=== PATIENT | male | born 1940 | race African-American/Black ===

== ENCOUNTER 2017-04-09 04:23 | Inpatient (IN) ==
[2017-04-09] MEDS ORDERED: ONDANSETRON 4 MG/2 ML VIAL IV STA (04:40)
[2017-04-09] MEDS ORDERED: SODIUM CHLORIDE 0.9% 500 ML IV STA (04:40)
[2017-04-09] MEDS ORDERED: MORPHINE 2 MG/1 ML SYRINGE IV STA (04:40)
--- NOTE | 2017-04-09 04:46 | Emergency Department Note ---
Mason Stephen Hilary, am scribing for, and in the presence of, Jona Farr MD 04:43. Yordan Stephen Robert M, MD, personally performed the services described in this documentation, ascribed by Yara Cuevas in my presence, and it is both accurate and complete 446 . Arrival - Arrival Chief Complaint: Shortness of Breath Stated Complaint: Shortness of breath with n/v/d ED Nursing Triage Note: Patient complains of shortness of breath, chest pain and nausea, vomiting and diarrhea that began this afternoon. Patient has a history of CHF, HTN, pacemaker placement. Dr. Shelley in [place] is patient's administrative court justice. Mode of Arrival: Stretcher Limitations: No Limitations Source: Patient, RN Notes Reviewed Time Seen by Provider: 04/09/17 04:35 - History of Present Illness HPI Narrative: Pt is a 76 y/o male brought into the ED via EMS with c/o SOB and vomiting which onset yesterday. Pt confirms vomiting, nausea, SOB and diarrhea but denies chest pain. No other complaints or problems stated in the ED. Patient has a PMHx of CHF, HTN, and pacemaker placement. Dr. Shelley in [place] is patient's administrative court justice. Onset (ago): hour(s) Consistency: constant Severity: mild Severity scale (1-10): 1 Allergies/Adverse Reactions: Allergies Allergy/AdvReac Type Severity Reaction Status Date / Time No Known Allergies Allergy Verified 10/31/16 18:56 Home Medications: Home Medications Medication Instructions Recorded Confirmed Type Aspirin [Ecotrin] 81 mg PO DAILY 04/30/15 04/09/17 History Carvedilol 25 mg PO BID 04/30/15 04/09/17 History Furosemide 40 mg PO DAILY 04/30/15 04/09/17 History Lisinopril 40 mg PO BID 04/30/15 04/09/17 History Tamsulosin [Flomax] 0.4 mg PO DAILY 04/30/15 04/09/17 History amLODIPine [Norvasc] 10 mg PO DAILY 04/30/15 04/09/17 History Simvastatin 20 mg PO DAILY 10/31/16 04/09/17 History Review of System - Review of System 12 point system: reviewed and no additional remarkable complaints except as stated - Review of System Constitutional: Absent: fever Respiratory: Present: respiratory distress (SOB) Cardiovascular: Absent: chest pain Gastrointestinal: Present: nausea, vomiting, diarrhea Medical,Surgical,& Family Hx - Medical History Cardio: History of: CHF, Hypertension, Pacemaker, Cardiovascular Problems ( PACEMAKER DR JOSEPHINE BURGOS) Neurology: History of: Seizures HEENT: History of: Ear Problem, Eye Problem (CATARACTS), Dental Problems ( DENTURES) Endocrine: History of: Dyslipidemia Genitourinary: History of: Prostate Problems (BPH) - Surgical History Cardiac Surgeries: Sugical HX of: Cardiac Catheterization, Cardiac Surgery HEENT Surgeries: Surgical HX of: Eye Surgery (cataract lt 05-02-15/For Rt 05-21-15 ) Reproductive Surgeries: Surgical HX of;: Prostate Surgery (TURP) - Social History Smoking Status: Never smoker Frequency of Alcohol Use: None Type of Drug Use: None Exam Vital Signs: Vital Signs Temperature 97.6 F 04/09/17 04:24 Pulse Rate 75 04/09/17 04:24 Respiratory Rate 20 04/09/17 04:24 Blood Pressure 132/104 04/09/17 04:24 O2 Sat by Pulse Oximetry 97 04/09/17 04:24 - General General appearance: alert, in no apparent distress - Head Head exam: Present: atraumatic, normocephalic - Eye Eye exam: Present: normal appearance, PERRL, EOMI - ENT ENT exam: Present: mucous membranes moist, TM's normal bilaterally. Absent: mucous membranes dry - Neck Neck exam: Present: full ROM, trachea midline. Absent: tenderness - Chest Chest inspection: Present: symmetric chest wall rise. Absent: tenderness - Respiratory Respiratory exam: Present: normal lung sounds bilaterally. Absent: respiratory distress - Cardiovascular Cardiovascular exam: Present: regular rate, normal rhythm, normal heart sounds. Absent: murmur, rubs, gallop - Abdominal Exam Abdominal exam: Present: soft, distention, normal bowel sounds. Absent: tenderness - Extremities Exam Extremities exam: Present: full ROM. Absent: tenderness - Back Exam Back exam: Present: full ROM. Absent: tenderness - Neurological Exam Neurological exam: Present: alert, oriented X3, CN II-XII intact. Absent: motor sensory deficit - Psychiatric Psychiatric exam: Present: normal affect, normal mood - Skin Skin exam: Present: warm, dry, intact, normal color. Absent: rash Course - Consultations Consultation #1: Girma Saha will evaluate and admit the patient. Time: 05:33 Results - Labs CBC & BMP: 04/09/17 04:52 04/09/17 04:52 Lab Results: I have reviewed the patients labs - Diagnostic Findings Procedure: Abdominal x-ray: image reviewed by me (Nonspecific bowel gas pattern suggests ileus or possibly focal small bowel obstruction.), Chest x-ray: image reviewed by me (Stable chest.) Disposition Clinical Impression: Ileus, Abdominal pain, Intractable hiccups, Nausea & vomiting, HTN ( hypertension), Pacemaker Case discussed with: patient, patient's family Disposition: Still a Patient Condition: Stable Time of Disposition: 05:35
[2017-04-09 04:59] LABS: Hematocrit 37.6 VOL% (42.0-52.0); Hemoglobin 12.7 GM/DL (14.0-18.0); Immature Granulocytes % 0.3 %; Immature Granulocytes Absolute 0.03 #; Lymphocytes # 1.1 10*3/uL (1.4-4.0); Lymphocytes % 12.3 % (21.2-54.2); Mean Corpuscular HGB Conc 33.8 GM/DL (32-36); Mean Corpuscular Hemoglobin 28 PG (27-34); Mean Corpuscular Volume 83.4 FL (87-102); Mean Platelet Volume 11.2 FL (9.6-12.0); Monocytes # 0.5 10*3/uL (0.11-0.8); Monocytes % 6.1 % (1.7-12.7); Neutrophils # 7.2 10*3/uL (1.4-7.4); Neutrophils % 81.3 % (38.7-73.9); Platelet Count 208 T/CUMM (130-400); Red Blood Count 4.51 MC/CUMM (3.8-5.5); Red Cell Distribution Width 14.2 % (9.3-17.3); White Blood Count 8.8 T/CUMM (4-12)
[2017-04-09 05:19] LABS: INR 1.1; PT Patient Result 11.5 SECS
[2017-04-09] MEDS ORDERED: ONDANSETRON 4 MG/2 ML VIAL ONE (05:23)
[2017-04-09] MEDS ORDERED: MORPHINE 2 MG/1 ML SYRINGE ONE (05:24)
[2017-04-09 05:29] LABS: Alanine Aminotransferase 16 U/L (16-61); Alkaline Phosphatase 62 U/L (45-117); Aspartate Amino Transferase 12 U/L (0-37); Blood Urea Nitrogen 26 MG/DL (7-18); Calcium 9.9 MG/DL (8.5-10.1); Glucose 191 MG/DL (74-106); Magnesium 1.8 MG/DL (1.8-2.4); Osmolality,Calculated 290.3 MOS/KG (273-304); Potassium 3.6 MMOL/L (3.5-5.1); Sodium 141 MMOL/L (136-145); Total Protein 7.6 G/DL (6.4-8.3); Troponin I Only < 0.015 NG/ML (0.00-0.045)
--- NOTE | 2017-04-09 05:55 | Hospitalist History & Physical ---
Assessment and Plan (1) Abdominal pain Status: Acute Current Visit: Yes (2) Ileus Status: Acute Current Visit: Yes (3) Nausea & vomiting Status: Acute Current Visit: Yes (4) HTN (hypertension) Status: Chronic Current Visit: Yes (5) Pacemaker Status: Chronic Assessment and plan: We will admit patient our service. We will can provide gentle hydration. We need to watch him closely. Repeat his KUB and see if this ileus resolves. If he has any more diarrhea will check stool studies. Reevaluate patient in the morning just plans appropriate Current Visit: Yes History of Present Illness Chief complaint: Abdominal pain chest pain nausea vomiting diarrhea History of present illness: Mr. Eckert is a 76 year old male past medical history significant for hypertension, pacemaker, congestive heart failure and prostate cancer sister who is in his normal state of health until approximately 7 PM yesterday. Patient started having gastroenteritis symptoms which included nausea vomiting diarrhea. Said he could not keep anything down. He reports abdominal cramps occurred also. Came up to our hospital for further evaluation. Patient had a workup done at our hospital in the patient appears to have a ileus. I was consulted for admission Home Medications Medication Instructions Recorded Confirmed Type Aspirin [Ecotrin] 81 mg PO DAILY 04/30/15 04/09/17 History Carvedilol 25 mg PO BID 04/30/15 04/09/17 History Furosemide 40 mg PO DAILY 04/30/15 04/09/17 History Lisinopril 40 mg PO BID 04/30/15 04/09/17 History Tamsulosin [Flomax] 0.4 mg PO DAILY 04/30/15 04/09/17 History amLODIPine [Norvasc] 10 mg PO DAILY 04/30/15 04/09/17 History Simvastatin 20 mg PO DAILY 10/31/16 04/09/17 History Allergies Allergy/AdvReac Type Severity Reaction Status Date / Time No Known Allergies Allergy Verified 10/31/16 18:56 Medical,Surgical,& Family Hx - Medical History Cardio: History of: CHF, Hypertension, Pacemaker, Cardiovascular Problems ( PACEMAKER DR JOSEPHINE BURGOS) Neurology: History of: Seizures HEENT: History of: Ear Problem, Eye Problem (CATARACTS), Dental Problems ( DENTURES) Endocrine: History of: Dyslipidemia Genitourinary: History of: Prostate Problems (BPH) - Surgical History Cardiac Surgeries: Sugical HX of: Cardiac Catheterization, Cardiac Surgery HEENT Surgeries: Surgical HX of: Eye Surgery (cataract lt 05-02-15/For Rt 05-21-15 ) Reproductive Surgeries: Surgical HX of;: Prostate Surgery (TURP) - Family History Family History: Reports;: Family Cancer - Social History Smoking Status: Never smoker Frequency of Alcohol Use: None Type of Drug Use: None 12 point system: reviewed and no additional remarkable complaints except as stated Exam - Constitutional Vitals: Period Temp Pulse Resp BP Sys/Lin Pulse Ox Last 24 Hr 97.6 F 75 20 132/104 97 General appearance: normal weight - Head Head exam: Present: normal inspection - Eye Eye exam: Present: EOMI Pupils: Present: EMIGDIO - ENT ENT exam: Present: normal exam - Neck Neck exam: Present: normal inspection - Respiratory Respiratory exam: Present: clear to auscultation bilaterally - Cardiovascular Cardiovascular exam: Present: regular rate and rhythm - GI/Abdominal GI/Abdominal exam: Present: distended, hypoactive bowel sounds, tenderness. Absent: rebound - Extremities Exam Extremities exam: Present: normal inspection - Back Exam Back exam: Present: normal inspection - Neurological Exam Neurological exam: Present: alert - Psychiatric Psychiatric exam: Present: normal affect Results - Labs CBC & BMP: 04/09/17 04:52 04/09/17 04:52
[2017-04-09] MEDS ORDERED: ONDANSETRON 4 MG/2 ML VIAL IV PRN (05:57)
--- NOTE | 2017-04-09 07:47 | XRay Report ---
History is short of breath Comparison 10/31/2016 The heart is enlarged with pacemaker present There are mild hypoaeration changes in the lung bases. There are slight increasing interstitial opacities in the lung bases without consolidation or pneumothorax seen Impression: 1. Suspected minimal interstitial edema PROCEDURE INTERPRETED AT [facility] DEPARTMENT OF RADIOLOGY Final Report Signed by: Dr. Karen Jose
--- NOTE | 2017-04-09 07:48 | XRay Report ---
History is abdominal pain Air-filled loops of small bowel in the mid abdomen measure up to 3.8 cm. Mild amount of air scattered in the remainder of the large and small bowel. No organomegaly is seen Impression: Localized ileus versus partial or early obstruction. Follow-up films recommended PROCEDURE INTERPRETED AT [facility] DEPARTMENT OF RADIOLOGY Final Report Signed by: Dr. Karen Jose
--- NOTE | 2017-04-09 07:50 | EKG Report ---
Stationary ECG Study [facility] Test Date: 04/09/2017 4:31:02 AM Pat Name: DILMA DEWEY Department: Room: 217 Gender: M Director Supply: : 1940 Requested by: Jona Farr Order Number: [id number] Melisa MD: SOCORRO WOODY Intervals [place] Rate: 91 P: 999 DE: 0 QRS: 10 QRSD: 123 T: 61 QT: 413 QTc: 462 Interpretive Statements NORMAL SINUS RHYTHM WITH VENTRICULAR PREMATURE COMPLEXES Electronically Signed On 04-10-17 15:59:40 CDT by SOCORRO WOODY [email or web address]
[2017-04-09] MEDS: KETOROLAC 15 MG/1 ML VIAL IV PRN ×3 (07:54→22:33)
[2017-04-09] MEDS: SODIUM CHLORIDE 0.9% 1,000 ML IV SCH ×2 (07:55→21:26)
[2017-04-09] MEDS: CARVEDILOL 25 MG TABLET PO SCH ×2 (07:56→16:16)
[2017-04-09] MEDS: PANTOPRAZOLE 40 MG VIAL IV SCH ×2 (09:03→21:26)
[2017-04-09] MEDS: ENOXAPARIN 40 MG/0.4 ML SYRINGE SUBCUT SCH (09:03)
[2017-04-09] MEDS: FUROSEMIDE 40 MG TABLET PO SCH (09:04)
[2017-04-09] MEDS: TAMSULOSIN 0.4 MG CAPSULE PO SCH (09:04)
[2017-04-09] MEDS: LISINOPRIL 20 MG TABLET PO SCH ×2 (09:04→21:26)
[2017-04-09] MEDS: amLODIPine 10 MG TABLET PO SCH (09:04)
[2017-04-09] MEDS: ASPIRIN EC 81 MG TABLET PO SCH (09:04)
--- NOTE | 2017-04-09 13:59 | Hospitalist Progress Note ---
Assessment and Plan (1) Ileus Status: Acute Assessment and plan: Patient will have an NG tube placed this morning. Repeat a KUB in the morning. Also repeat his CBC BMP and magnesium tomorrow. Current Visit: Yes (2) Abdominal pain Status: Acute Assessment and plan: As above. I noticed that there was no lipase drawn overnight. That will be run on the serum drawn overnight. Current Visit: Yes (3) Nausea & vomiting Status: Acute Assessment and plan: This is improved. We will continue to observe. Continue IV fluids. Will have an NG tube for a day. Current Visit: Yes Hospitalist: Subjective Interval history: This is a first encounter with this patient. Patient has been seen interviewed and examined and chart has been reviewed; 76-year-old gentleman admitted overnight with nausea diarrhea and vomiting and abdominal pain. Assessment patient was thought of possibly partial small bowel obstruction. KUB. I noticed that she does not have an NG tube at this point. He is a febrile but count is normal and no metabolic acidosis on chemistry. No significant discomfort with abdominal pain. Exam - Constitutional Vitals: Period Temp Pulse Resp BP Sys/Lin Pulse Ox Last 24 Hr 97 F-97.6 F 64-101 16-20 111-136/66-104 95-100 General appearance: mild distress, over weight - Head Head exam: Present: normocephalic, atraumatic - Eye Eye exam: Present: EOMI, other (Anicteric sclera) Pupils: Present: EMIGDIO - ENT ENT exam: Present: normal exam - Neck Neck exam: Present: normal inspection - Respiratory Respiratory exam: Present: clear to auscultation bilaterally - Cardiovascular Cardiovascular exam: Present: regular rate and rhythm - GI/Abdominal GI/Abdominal exam: Present: other (Diffuse abdominal discomfort mostly around the periumbilical area. Evidence of bowel sounds patient has rebound tenderness ) - Extremities Exam Extremities exam: Present: full ROM - Neurological Exam Neurological exam: Present: alert, oriented X3, CN II-XII intact - Psychiatric Psychiatric exam: Present: normal affect, normal mood - Skin Skin exam: Present: normal color, warm, dry Results - Labs CBC & BMP: 04/09/17 04:52 04/09/17 04:52 Lab Results: I have reviewed the past 24 hour labs (Noted normal white count mild anemia. Creatinine 1. 4 repeat a BMP and CBC normal)
[2017-04-09] MEDS: SIMVASTATIN 20 MG TABLET PO SCH (21:12)
[2017-04-10 04:49] LABS: Basophils % 0.2 % (0.0-0.8); Hematocrit 34.2 VOL% (42.0-52.0); Hemoglobin 11.3 GM/DL (14.0-18.0); Immature Granulocytes % 0.2 %; Immature Granulocytes Absolute 0.01 #; Lymphocytes # 1.1 10*3/uL (1.4-4.0); Lymphocytes % 19.2 % (21.2-54.2); Mean Corpuscular Hemoglobin 28 PG (27-34); Mean Corpuscular Volume 85.1 FL (87-102); Mean Platelet Volume 11.1 FL (9.6-12.0); Monocytes # 0.8 10*3/uL (0.11-0.8); Monocytes % 14.7 % (1.7-12.7); Neutrophils # 3.8 10*3/uL (1.4-7.4); Neutrophils % 65.7 % (38.7-73.9); Platelet Count 196 T/CUMM (130-400); Red Blood Count 4.02 MC/CUMM (3.8-5.5); Red Cell Distribution Width 14.5 % (9.3-17.3); White Blood Count 5.7 T/CUMM (4-12)
[2017-04-10] MEDS: KETOROLAC 15 MG/1 ML VIAL IV PRN ×3 (05:23→16:28)
[2017-04-10 05:29] LABS: Calcium 8.2 MG/DL (8.5-10.1); Magnesium 2.1 MG/DL (1.8-2.4); Osmolality,Calculated 300.7 MOS/KG (273-304); Potassium 3.5 MMOL/L (3.5-5.1)
[2017-04-10 07:06] LABS: Albumin 3.3 G/DL (3.4-5.0); Calcium 8.3 MG/DL (8.5-10.1); Osmolality,Calculated 300.7 MOS/KG (273-304); Potassium 3.5 MMOL/L (3.5-5.1); Total Protein 6.4 G/DL (6.4-8.3)
[2017-04-10] MEDS: ENOXAPARIN 40 MG/0.4 ML SYRINGE SUBCUT SCH (09:03)
[2017-04-10] MEDS: PANTOPRAZOLE 40 MG VIAL IV SCH ×2 (09:03→21:05)
[2017-04-10] MEDS: FUROSEMIDE 40 MG TABLET PO SCH (09:04)
[2017-04-10] MEDS: TAMSULOSIN 0.4 MG CAPSULE PO SCH (09:04)
[2017-04-10] MEDS: ASPIRIN EC 81 MG TABLET PO SCH (09:04)
[2017-04-10] MEDS: amLODIPine 10 MG TABLET PO SCH (09:04)
[2017-04-10] MEDS: CARVEDILOL 25 MG TABLET PO SCH ×2 (09:04→16:28)
[2017-04-10] MEDS: LISINOPRIL 20 MG TABLET PO SCH ×2 (09:04→21:05)
--- NOTE | 2017-04-10 09:07 | XRay Report ---
History: Abdominal pain Date: 04/10/2017 Study: KUB Comparison exam: 04/09/2017 A nasogastric tube is positioned with its tip overlying the fundus of the stomach. There is increased disproportionate small bowel dilatation compared to the previous study. Scattered stool and air are noted in the normal caliber colon. The osseous structures are unchanged. Impression: Worsening partial small bowel obstruction. The nasogastric tube tip overlies the proximal stomach level PROCEDURE INTERPRETED AT [facility] DEPARTMENT OF RADIOLOGY Final Report Signed by: Dr. Deanna Clayton
[2017-04-10] MEDS: SODIUM CHLORIDE 0.9% 1,000 ML IV SCH ×2 (10:46→23:38)
--- NOTE | 2017-04-10 12:43 | Hospitalist Progress Note ---
Assessment and Plan (1) Ileus Status: Acute Assessment and plan: Repeat KUB still shows prominence of small bowel loops. She will be considering surgery. NG tube suction with minimal return. Potassium level was normal. Current Visit: Yes (2) Abdominal pain Status: Acute Assessment and plan: Lipase drawn late yesterday was on 85. LFTs are within normal limits potassium of 3.5 and a normal magnesium at 2.1 Current Visit: Yes (3) Nausea & vomiting Status: Acute Assessment and plan: Patient states that this is resolved, not nauseous anymore Current Visit: Yes Hospitalist: Subjective Interval history: Patient has been seen interviewed and examined and chart has been reviewed complaining of some abdominal pain though he says he feels a little better than yesterday. Repeat KUB still shows some prominence of small bowel loops. Will obtain surgical consultation for bedside evaluation and recommendation today. White count remains normal at 5,7700 and is not acidotic Exam - Constitutional Vitals: Period Temp Pulse Resp BP Sys/Lin Pulse Ox Last 24 Hr 97.3 F-98.6 F 71-84 18-22 90-151/49-87 91-95 General appearance: no acute distress - Head Head exam: Present: normocephalic, atraumatic - Eye Eye exam: Present: EOMI, other Pupils: Present: EMIGDIO (Anicteric sclera) - Neck Neck exam: Present: other (Supple neck no thyromegaly no JVD) - Respiratory Respiratory exam: Present: clear to auscultation bilaterally - Cardiovascular Cardiovascular exam: Present: regular rate and rhythm - GI/Abdominal GI/Abdominal exam: Present: tenderness (Tenderness on palpation diffusely presence of bowel sounds) - Extremities Exam Extremities exam: Present: full ROM - Neurological Exam Neurological exam: Present: alert, oriented X3, CN II-XII intact - Psychiatric Psychiatric exam: Present: other (Subdued affect) - Skin Skin exam: Present: normal color, warm, dry Results - Labs CBC & BMP: 04/10/17 04:31 04/10/17 04:31 Lab Results: I have reviewed the past 24 hour labs
--- NOTE | 2017-04-10 12:45 | General Surgery Consult Note ---
History of Present Illness Chief complaint: Consult for small bowel obstruction History of present illness: Mr. Eckert is a 76 year old male who states he previously was in good health was out working on yesterday morning and felt pretty tired so he went into his house. He decided to drink some water and at that point began to notice some abdominal discomfort which continue to progress. He states it was mostly over on the right abdomen. He began to have multiple complaints including chest pain shortness of breath diarrhea and vomiting. His pain was achy and dull in nature. He was admitted and his initial x-ray suggested an ileus. Repeat x- ray showed worsening pattern of the small bowel. He had an NG tube placed and currently feels much better than when he presented. NG tube output today is much decreased. Not able to access the assessment and plan screens put it here: Impression ileus Plan: We will plan for CT scan of the abdomen and pelvis in the morning with oral contrast through the NG tube. Suspect this may be an ileus related to his other issues. He is currently appears to be doing well with no abdominal pain. We will continue to follow. Home Medications Medication Instructions Recorded Confirmed Type Aspirin [Ecotrin] 81 mg PO DAILY 04/30/15 04/09/17 History Carvedilol 25 mg PO BID 04/30/15 04/09/17 History Furosemide 40 mg PO DAILY 04/30/15 04/09/17 History Lisinopril 40 mg PO BID 04/30/15 04/09/17 History Tamsulosin [Flomax] 0.4 mg PO DAILY 04/30/15 04/09/17 History amLODIPine [Norvasc] 10 mg PO DAILY 04/30/15 04/09/17 History Simvastatin 20 mg PO DAILY@2100 10/31/16 04/09/17 History Allergies Allergy/AdvReac Type Severity Reaction Status Date / Time No Known Allergies Allergy Verified 10/31/16 18:56 Medical,Surgical,& Family Hx - Medical History Cardio: History of: CHF, Hypertension, Pacemaker, Cardiovascular Problems ( PACEMAKER DR JOSEPHINE BURGOS) Neurology: History of: Seizures HEENT: History of: Ear Problem, Eye Problem (CATARACTS), Dental Problems ( DENTURES) Endocrine: History of: Dyslipidemia Genitourinary: History of: Prostate Problems (BPH) Gastrointestinal: History of: GERD - Surgical History Surgical History: noncontributory Cardiac Surgeries: Sugical HX of: Cardiac Catheterization, Cardiac Surgery HEENT Surgeries: Surgical HX of: Eye Surgery (cataract lt 05-02-15/For Rt 05-21-15 ) Reproductive Surgeries: Surgical HX of;: Prostate Surgery (TURP) - Family History Family History: noncontributory Family History: Reports;: Family Cancer - Social History Smoking Status: Never smoker Frequency of Alcohol Use: None Type of Drug Use: None 12 point system: reviewed and no additional remarkable complaints except as stated Exam - Constitutional Vitals: Period Temp Pulse Resp BP Sys/Lin Pulse Ox Last 24 Hr 97.3 F-98.6 F 71-84 18-22 90-151/49-87 91-95 General appearance: no acute distress - Head Head exam: Present: normocephalic - ENT Mouth exam: Present: normal external inspection - Neck Neck exam: Present: normal inspection - Respiratory Respiratory exam: Present: clear to auscultation bilaterally - Cardiovascular Cardiovascular exam: Present: RRR - GI/Abdominal GI/Abdominal exam: Present: soft (Nontender, mildly distended but difficult to tell due to body habitus) - Extremities Exam Extremities exam: Present: normal inspection - Back Exam Back exam: Present: normal inspection - Neurological Exam Neurological exam: Present: alert, oriented X3 Speech: Present: normal - Skin Skin exam: Present: normal color Results - Labs CBC & BMP: 04/10/17 04:31 04/10/17 04:31 Lab Results: I have reviewed the past 24 hour labs
[2017-04-10] MEDS: SIMVASTATIN 20 MG TABLET PO SCH (21:05)
[2017-04-11] MEDS: PANTOPRAZOLE 40 MG VIAL IV SCH ×2 (08:30→20:49)
[2017-04-11] MEDS: FUROSEMIDE 40 MG TABLET PO SCH (08:30)
[2017-04-11] MEDS: CARVEDILOL 25 MG TABLET PO SCH ×2 (08:30→17:16)
[2017-04-11] MEDS: amLODIPine 10 MG TABLET PO SCH (08:30)
[2017-04-11] MEDS: TAMSULOSIN 0.4 MG CAPSULE PO SCH (08:30)
[2017-04-11] MEDS: ENOXAPARIN 40 MG/0.4 ML SYRINGE SUBCUT SCH (08:31)
[2017-04-11] MEDS: ASPIRIN EC 81 MG TABLET PO SCH (08:31)
[2017-04-11] MEDS: KETOROLAC 15 MG/1 ML VIAL IV PRN (08:31)
[2017-04-11] MEDS: LISINOPRIL 20 MG TABLET PO SCH ×2 (08:33→20:49)
--- NOTE | 2017-04-11 09:38 | CT Report ---
CT abdomen pelvis Indication: Small bowel obstruction Comparison: None available Technique: Axial CT imaging of the abdomen and pelvis is performed without intravenous contrast. Oral contrast was used. Findings: Cardiac and lung bases are within normal limits CT abdomen: The liver spleen pancreas and adrenal glands are normal in size and density. No evidence of focal lesion is demonstrated in these solid organs. Kidneys are normal in size with cystic area on the right kidney up to 4.5 cm in size. Hyperdense cystic areas seen on the left kidney that measures up to 1.4 cm in size. No evidence of hydronephrosis or nephrolithiasis is seen. Small bowel caliber is increased diffusely with delayed the passage of oral contrast. Large bowel caliber is increased with increased fluid and no wall thickening or adjacent inflammatory change is seen. No evidence of free fluid or free air is present. CT pelvis: Diverticula are seen in the descending and sigmoid colon without evidence of diverticulitis. Bladder appear within normal limits. The pelvic organs show no evidence of abnormality Impression: Increased small bowel caliber diffusely and increased fluid. Similar findings are present in the proximal colon without evidence of obstruction and suggests enterocolitis. This CT exam was performed using one or more the following dose reduction techniques: Automated exposure control, adjustment of the MA and/or KV according to patient size, or use of iterative reconstruction technique. PROCEDURE INTERPRETED AT [facility] [place] DEPARTMENT OF RADIOLOGY Final Report Signed by: Dr. Beau Lang
--- NOTE | 2017-04-11 10:09 | Hospitalist Progress Note ---
Assessment and Plan (1) Ileus Status: Acute Assessment and plan: Repeat KUB still shows prominence of small bowel loops. She will be considering surgery. NG tube suction with minimal return. Potassium level was normal. Current Visit: Yes (2) Abdominal pain Status: Acute Assessment and plan: Lipase drawn late yesterday was on 85. LFTs are within normal limits potassium of 3.5 and a normal magnesium at 2.1 Current Visit: Yes (3) Nausea & vomiting Status: Acute Assessment and plan: This is resolved Current Visit: Yes Hospitalist: Subjective Interval history: Patient has been seen interviewed and examined and chart has been reviewed. Surgical consultation is appreciated. Repeat CT scan has been done pending reporting. Patient does seem to have her remnant areas with prominent small bowel loops. Abdominal pain is less. Exam - Constitutional Vitals: Period Temp Pulse Resp BP Sys/Lin Pulse Ox Last 24 Hr 97.0 F-98.6 F 60-77 16-22 90-117/49-72 91-96 General appearance: over weight - Head Head exam: Present: normocephalic, atraumatic - Eye Eye exam: Present: EOMI Pupils: Present: EMIGDIO - ENT ENT exam: Present: normal oropharynx, other (Nasogastric tube seen and placed to slow [place]) - Respiratory Respiratory exam: Present: clear to auscultation bilaterally - Cardiovascular Cardiovascular exam: Present: regular rate and rhythm, other (With occasional ectopy. Monitor strips are showing occasional PVCs.) - GI/Abdominal GI/Abdominal exam: Present: normal bowel sounds, soft, other (Mild discomfort periumbilical on palpation) - Neurological Exam Neurological exam: Present: alert, oriented X3, CN II-XII intact - Psychiatric Psychiatric exam: Present: normal affect, normal mood - Skin Skin exam: Present: normal color, warm, dry Results - Labs CBC & BMP: 04/10/17 04:31 04/10/17 04:31 Lab Results: I have reviewed the past 24 hour labs (Morning labs be drawn tomorrow to include CMP magnesium and CBC)
[2017-04-11] MEDS ORDERED: LACTATED RINGERS 1,000 ML IV ONE (10:22)
--- NOTE | 2017-04-11 10:24 | General Surgery Progress Note ---
Assessment and Plan - Time spent with patient Time spent with patient: Less than 30 minutes (1) Enterocolitis Status: Acute Assessment and plan: 76-year-old -[place] male with history of hypertension, pacemaker, congestive heart failure, and prostate cancer admitted by the hospitalist service on 04/09/2017 with abdominal pain, nausea, vomiting, and diarrhea. NG tube was placed and his output was less than [address] scan shows no evidence of obstruction, suggesting enterocolitis. Patient feels much better today with no nausea and his abdomen is soft with no abdominal pain. He is still having diarrhea. Will DC NG tube and start on a clear liquid diet. Consult GI for enterocolitis. His creatinine has gone up to 1.6 so we will bolus him a liter of fluid, stopped Toradol and his Lasix. This is all been discussed with Dr. Cross who has seen and examined patient. Current Visit: Yes (2) Acute kidney injury Status: Acute Current Visit: Yes (3) Abdominal pain Status: Acute Current Visit: Yes (4) Nausea & vomiting Status: Acute Current Visit: Yes Subjective Narrative: Patient states he feels much better today. He has no complaints of abdominal pain or distention. He is still having multiple watery bowel movements but he has no complaints of nausea. Exam - Constitutional Vitals: Period Temp Pulse Resp BP Sys/Lin Pulse Ox Last 24 Hr 97.0 F-98.6 F 60-77 16-22 90-117/49-72 91-96 Exam: 76-year-old -[place] male, no acute distress, alert and oriented Chest clear CV regular rate and rhythm Abdomen soft, nontender, normal bowel sounds Extremities no edema Results - Labs CBC & BMP: 04/10/17 04:31 04/10/17 04:31 Lab Results: I have reviewed the past 24 hour labs - Diagnostic Findings Procedure: CT Abdomen and Pelvis: report reviewed by me (Increased small bowel caliber diffusely and increase fluid similar findings present in the proximal colon without evidence of obstruction and suggest enterocolitis.)
[2017-04-11] MEDS: SODIUM CHLORIDE 0.9% 1,000 ML IV SCH (14:52)
--- NOTE | 2017-04-11 14:59 | Gastrointestinal Consult Note ---
Assessment and Plan (1) Acute mesenteric ischemia Status: Acute Current Visit: Yes (2) Melena Status: Acute Current Visit: Yes (3) Diarrhea Status: Acute Current Visit: Yes (4) Abdominal pain Status: Acute Current Visit: Yes (5) Ileus Status: Acute Current Visit: Yes (6) Nausea & vomiting Status: Acute Assessment and plan: PLEASE NOTE -- automatic citation of patient information is unavoidable in this electronic note. I have made a reasonable effort to review the information cited , but it is not a part of my evaluation, impression, or recommendation unless specifically discussed in the dictated text that follows. As well, voice recognition software was used in the creation of this clinical note. Reasonable effort was made to identify and correct gross errors. Despite proofreading, errors in human geography instructor may be present, including nonsense verbiage at times. If you encounter such an error, please contact me at [phone] for discussion and correction. -- Yesenia Chief complaint: Possible enterocolitis Consult from: surgery consult service, [place] History of present illness: This is a new patient, a 76-year-old man with congestive heart failure, prostate cancer, pacemaker, presenting with nausea, vomiting, diarrhea seen by consultation for evaluation of possible enterocolitis. The patient is admitted to [facility]. under the care of Jensen Aggarwal , also followed by general surgery, Dante Cross, with a primary complaints of abdominal pain, nausea and vomiting, DAVIS, concern for bowel obstruction, and now possible enterocolitis. Patient states that he had been out in his yard working very hard in the heat of the day, dehydrated, not drinking adequate fluids, when he developed feeling of dehydration defined by dry mouth, lightheadedness, shortness of breath, and H&P note of chest pain as well. Patient states he came inside, tried to rest and drink something, and later went to bed for the night. He woke in the middle of the night with significant , cramping, sharp abdominal pain, which was followed by nonbloody diarrhea as well as nonbloody repeated emesis. Does state some of the early diarrhea was black and tarry. He had never had symptoms like this before, and otherwise at baseline just has mild heartburn. Denies prior melena, hematochezia, weight loss, pain with eating. Initial x-rays suggested an ileus. Repeat x-ray showed worsening pattern in the small bowel. NG tube was placed which relieved some of his symptoms. NG tube now removed this morning after CT revealed dilated small and large bowel without any obstruction, and patient has passed flatus. At the time of my seeing this patient around noon, reported approximately 50% improvement in his overall symptoms, near resolution of his diarrhea, loose bowel movement this morning without blood, and had tolerated approximately 30 ounces of clear liquids with additional improvement in symptomatology. GI review of systems included: heartburn, regurgitation, early satiety, dysphagia, odynophagia, abdominal pain, nausea, vomiting, hematemesis, weight loss, weight gain, fever, chills, fatigue, decreased appetite, diarrhea, constipation, hematochezia, melena, bloating, malodorous flatus, anal pain, or NSAID use, and was negative except as noted above. REVIEW OF SYSTEMS: Complete other review of systems negative except as noted in the HPI Outpatient medications: Personally reviewed simvastatin, amlodipine, Flomax, lisinopril, Lasix 40 mg daily, carvedilol, aspirin 81 mg daily Inpatient medications: Personally reviewed Aspirin 81 mg daily Amlodipine 10 mg daily Coreg 25 mg twice daily Lovenox 40 mg subcu every 24 Lisinopril 40 mg twice daily Zofran 4 mg IV every 4 as needed Protonix 40 mg IV twice daily Zocor 20 mg daily NS infusion Flomax Past Medical History: Personally reviewed Hypertension, congestive heart failure, pacemaker, cataract bilateral, Social history: Never tobacco. No significant alcohol Family history: Significant family history for colon cancer reported Brother approximately age 50 with colon cancer Mother with colon cancer approximately age greater than 60 Uncle with colon cancer greater than 60 Patient also very vague about potential 6 out of 12 other maternal aunts/uncles with some kind of cancer PHYSICAL EXAMINATION: CONSTITUTIONAL: Vital signs reviewed as documented above. In no acute distress. Nontoxic-appearing. EYES: Anicteric conjunctiva. Extra-ocular movements are intact and symmetric. EARS: Able to hear speech at conversational volume level, no external trauma/ masses. MOUTH: No oral/mouth lesions or ulcers. NECK: No masses or crepitus. Thyroid is of normal size and symmetric. HEART: Regular rate, regular rhythm, no heave. No edema peripherally LUNGS: Clear to auscultation bilaterally. No increased work of breathing or accessory muscle use. GI/ABDOMEN: Overweight abdomen abdomen, soft, mildly tender to palpation diffusely throughout the abdomen, no rebound tenderness, nondistended, no rigidity. No palpable mass. No appreciable hepatosplenomegaly. Positive bowel sounds SKIN: No rash on face, arms, or hands. No palpable lesions MUSCULOSKELETAL: Normal gait. Muscle tone appears normal without any abnormal movements. PSYCH: Normal affect. Alert and oriented to person, place, and time. Laboratory: Personally reviewed CBC: WBC 5.7, hemoglobin 11.3, MCV 85.1, platelet 196 CMP sodium 145, potassium 3.5, chloride 108, bicarb 27, gap 13, BUN 42, creatinine 1.6 LAE: AST 13, ALT 15, alk phos 54, bilirubin 1, albumin 3.3, lipase 85 C.diff and stool culture negative Radiology: Personally reviewed reports and images CT abdomen and pelvis with out contrast on April 11, 2017 Diverticula are seen in the descending and sigmoid colon without evidence of diverticulitis. Increased small bowel caliber diffusely and increased fluid. Similar findings are present in the proximal colon without evidence of obstruction and suggest enterocolitis. Liver, spleen, pancreas and adrenal glands are normal in size and density without focal lesion. Cystic area in the right kidney. Cystic area in the left kidney. No evidence of hydronephrosis or nephrolithiasis. Past endoscopic evaluation. Endoscopic evaluation not available for my review, patient reports last colonoscopy approximately 7 years ago done in [facility] Impressions: 1. Abdominal pain with small and large bowel functional ileus. Most likely secondary to intermittent gut ischemia, exacerbated by underlying history of congestive heart failure, hypertension, as well as likely hypovolemia secondary to extensive outdoor exercise in the heat of the day in the summer. With adequate rehydration and electrolyte replacement, patient is significantly improved, without any exacerbation of symptoms with significant p.o. clear liquid diet. Alternatively, although CT scan did not citrus picker obstruction, and inflammatory evaluation was limited by CT with lack of IV contras colonic mass cannot be excluded. 2. Melena. Most likely secondary to intermittent gut ischemia, now resolved. However in the setting of chronic upper GI symptoms in a patient over the age of 50, with significant family history of GI related malignancy, outpatient EGD should be considered to rule out peptic ulcer disease, bleeding AVM, upper GI malignancy. 3. Other specified counseling -- The patient was seen for greater than 30 minutes. The patient was counseled for greater than 50% of this time regarding differential diagnosis, likely diagnosis, diagnostic and therapeutic alternatives, risks/benefits/alternatives of medications and procedures, and plan of care generally. The patient expressed understanding and wishes to proceed. Recommendations: -Continue hydration, electrolyte replacement to goal K 4 Mag 2, and check and replace phos -Advance diet as tolerated -Check hemoglobin A1c to see if patient has underlying diabetes that can further complicate his distal vascular system, and increased risk of recurrent mesenteric ischemia or ischemic colitis -Recommend outpatient colonoscopy 6-8 weeks, even if symptoms have completely resolved in order to assess for malignant lesions with family history, as he is overdue for exam. -Consider upper endoscopy with colonoscopy in 6-8 weeks to assess upper GI symptoms -avoid opioids and other constipating medications GI will sign off at this time, please call with further questions Current Visit: Yes History of Present Illness History of present illness: Mr. Eckert is a 76 year old male Home Medications Medication Instructions Recorded Confirmed Type Aspirin [Ecotrin] 81 mg PO DAILY 04/30/15 04/09/17 History Carvedilol 25 mg PO BID 04/30/15 04/09/17 History Furosemide 40 mg PO DAILY 04/30/15 04/09/17 History Lisinopril 40 mg PO BID 04/30/15 04/09/17 History Tamsulosin [Flomax] 0.4 mg PO DAILY 04/30/15 04/09/17 History amLODIPine [Norvasc] 10 mg PO DAILY 04/30/15 04/09/17 History Simvastatin 20 mg PO DAILY@2100 10/31/16 04/09/17 History Allergies Allergy/AdvReac Type Severity Reaction Status Date / Time No Known Allergies Allergy Verified 10/31/16 18:56 Medical,Surgical,& Family Hx - Medical History Cardio: History of: CHF, Hypertension, Pacemaker, Cardiovascular Problems ( PACEMAKER DR JOSEPHINE BURGOS) Neurology: History of: Seizures HEENT: History of: Ear Problem, Eye Problem (CATARACTS), Dental Problems ( DENTURES) Endocrine: History of: Dyslipidemia Genitourinary: History of: Prostate Problems (BPH) Gastrointestinal: History of: GERD - Surgical History Cardiac Surgeries: Sugical HX of: Cardiac Catheterization, Cardiac Surgery HEENT Surgeries: Surgical HX of: Eye Surgery (cataract lt 05-02-15/For Rt 05-21-15 ) Reproductive Surgeries: Surgical HX of;: Prostate Surgery (TURP) - Family History Family History: Reports;: Family Cancer - Social History Smoking Status: Never smoker Frequency of Alcohol Use: None Type of Drug Use: None Exam - Constitutional Vitals: Period Temp Pulse Resp BP Sys/Lin Pulse Ox Last 24 Hr 97.0 F-98.2 F 60-76 16-22 102-117/57-72 92-97 Results - Labs CBC & BMP: 04/10/17 04:31 04/10/17 04:31
[2017-04-11] MEDS: SIMVASTATIN 20 MG TABLET PO SCH (20:49)
[2017-04-12] MEDS: SODIUM CHLORIDE 0.9% 1,000 ML IV SCH ×2 (04:17→20:19)
[2017-04-12 07:22] LABS: Eosinophils % 0.3 % (0.00-10.9); Hematocrit 32.5 VOL% (42.0-52.0); Hemoglobin 10.6 GM/DL (14.0-18.0); Lymphocytes % 32.2 % (21.2-54.2); Mean Corpuscular HGB Conc 32.6 GM/DL (32-36); Mean Corpuscular Hemoglobin 28 PG (27-34); Mean Corpuscular Volume 86.2 FL (87-102); Mean Platelet Volume 12.3 FL (9.6-12.0); Monocytes # 0.7 10*3/uL (0.11-0.8); Monocytes % 21.6 % (1.7-12.7); Neutrophils # 1.5 10*3/uL (1.4-7.4); Neutrophils % 45.9 % (38.7-73.9); Platelet Count 181 T/CUMM (130-400); Red Blood Count 3.77 MC/CUMM (3.8-5.5); Red Cell Distribution Width 14.3 % (9.3-17.3); White Blood Count 3.2 T/CUMM (4-12)
[2017-04-12 07:38] LABS: Albumin 2.9 G/DL (3.4-5.0); Bilirubin,Total 0.8 MG/DL (0.2-1.0); Calcium 8.3 MG/DL (8.5-10.1); Osmolality,Calculated 294.8 MOS/KG (273-304); Potassium 3.4 MMOL/L (3.5-5.1); Total Protein 5.7 G/DL (6.4-8.3)
[2017-04-12] MEDS: ASPIRIN EC 81 MG TABLET PO SCH (08:54)
[2017-04-12] MEDS: CARVEDILOL 25 MG TABLET PO SCH ×2 (08:54→16:01)
[2017-04-12] MEDS: amLODIPine 10 MG TABLET PO SCH (08:54)
[2017-04-12] MEDS: ENOXAPARIN 40 MG/0.4 ML SYRINGE SUBCUT SCH (08:54)
[2017-04-12] MEDS: LISINOPRIL 20 MG TABLET PO SCH ×2 (08:54→20:22)
[2017-04-12] MEDS: TAMSULOSIN 0.4 MG CAPSULE PO SCH (08:54)
[2017-04-12] MEDS: PANTOPRAZOLE 40 MG VIAL IV SCH ×2 (08:55→20:20)
[2017-04-12 09:21] LABS: Band Neutrophils 4 % (0-10); Hypochromasia 2+; Lymphocytes 34 % (20-55); Microcytosis 1+; Platelet Estimate Adequate; Promyelocytes 1 %; Segmented Neutrophils 55 % (50-85); Total Cells Counted 100
[2017-04-12] MEDS: POTASSIUM CHLORIDE RIDER 10 MEQ in PREMIX 1 EACH IV PRN ×3 (09:43→11:51)
--- NOTE | 2017-04-12 10:34 | Hospitalist Progress Note ---
Assessment and Plan (1) Ileus Status: Acute Assessment and plan: Patient shows improvement. Was started on clear liquids yesterday. We will advance diet to full liquids today and will solid foods for her to start by tomorrow morning. Current Visit: Yes (2) Abdominal pain Status: Acute Assessment and plan: Quite benign today. Continue feeding as above Current Visit: Yes (3) Nausea & vomiting Status: Acute Assessment and plan: This is resolved Current Visit: Yes Hospitalist: Subjective Interval history: Patient seen interviewed and examined and chart has been reviewed patient's NG tube now taken off was started on clear liquids yesterday. Commendations from both GI and surgery are noted. Will advance diet to full liquid today. Check A1c get him out of bed to chair with increasing ambulation. Exam - Constitutional Vitals: Period Temp Pulse Resp BP Sys/Lin Pulse Ox Last 24 Hr 97.0 F-99.8 F 63-68 16-22 101-121/53-69 93-97 General appearance: no acute distress - Head Head exam: Present: normocephalic, atraumatic - Eye Eye exam: Present: EOMI Pupils: Present: EMIGDIO - ENT ENT exam: Present: normal oropharynx - Respiratory Respiratory exam: Present: clear to auscultation bilaterally - Cardiovascular Cardiovascular exam: Present: regular rate and rhythm - GI/Abdominal GI/Abdominal exam: Present: normal bowel sounds, soft - Extremities Exam Extremities exam: Present: full ROM - Neurological Exam Neurological exam: Present: alert, oriented X3, CN II-XII intact - Psychiatric Psychiatric exam: Present: normal affect, normal mood - Skin Skin exam: Present: normal color, warm, dry Results - Labs CBC & BMP: 04/12/17 06:16 04/12/17 06:16 Lab Results: I have reviewed the past 24 hour labs (Noted hypokalemia supplemented.)
--- NOTE | 2017-04-12 10:43 | General Surgery Progress Note ---
Assessment and Plan (1) Enterocolitis Status: Acute Assessment and plan: Impression: Enterocolitis Plan: Patient has been advanced to full liquid diet. Patient was seen by GI. No obvious indication for surgery at this time. Current Visit: Yes Subjective Patient reports: Present: no new complaints Narrative: Patient tolerated clear liquids yesterday without any problems. He denies nausea and vomiting. Still having some diarrhea. Exam - Constitutional Vitals: Period Temp Pulse Resp BP Sys/Lin Pulse Ox Last 24 Hr 97.0 F-99.8 F 63-68 16-22 101-121/53-69 93-97 General appearance: no acute distress - Head Head exam: Present: normocephalic - Neck Neck exam: Present: normal inspection - Respiratory Respiratory exam: Present: clear to auscultation bilaterally - Cardiovascular Cardiovascular exam: Present: RRR - GI/Abdominal GI/Abdominal exam: Present: soft (Nontender. Protuberant with bowel sounds) - Neurological Exam Neurological exam: Present: alert, oriented X3 Speech: Present: normal - Skin Skin exam: Present: normal color Results - Labs CBC & BMP: 04/12/17 06:16 04/12/17 06:16 Lab Results: I have reviewed the past 24 hour labs
[2017-04-12] MEDS: SIMVASTATIN 20 MG TABLET PO SCH (20:20)
[2017-04-13] MEDS: SODIUM CHLORIDE 0.9% 1,000 ML IV SCH ×2 (05:47→18:41)
[2017-04-13 08:00] LABS: Eosinophils % 0.6 % (0.00-10.9); Immature Granulocytes % 0.3 %; Immature Granulocytes Absolute 0.01 #; Lymphocytes # 1.1 10*3/uL (1.4-4.0); Lymphocytes % 35.4 % (21.2-54.2); Mean Corpuscular HGB Conc 32.3 GM/DL (32-36); Mean Corpuscular Hemoglobin 28 PG (27-34); Mean Corpuscular Volume 86.4 FL (87-102); Mean Platelet Volume 11.3 FL (9.6-12.0); Monocytes # 0.6 10*3/uL (0.11-0.8); Neutrophils # 1.5 10*3/uL (1.4-7.4); Neutrophils % 45.7 % (38.7-73.9); Platelet Count 154 T/CUMM (130-400); Red Blood Count 3.59 MC/CUMM (3.8-5.5); White Blood Count 3.2 T/CUMM (4-12)
[2017-04-13 08:26] LABS: Eosinophils 1 % (0-10); Hypochromasia 1+; Lymphocytes 34 % (20-55); Ovalocytes Slight; Platelet Estimate Normal; Segmented Neutrophils 46 % (50-85); Total Cells Counted 100
[2017-04-13 08:27] LABS: Microcytosis 1+
[2017-04-13 08:37] LABS: Albumin 2.6 G/DL (3.4-5.0); Bilirubin,Total 0.9 MG/DL (0.2-1.0); Calcium 8.4 MG/DL (8.5-10.1); Osmolality,Calculated 289.8 MOS/KG (273-304); Phosphorous 2.1 MG/DL (2.5-4.9); Potassium 3.6 MMOL/L (3.5-5.1); Total Protein 5.5 G/DL (6.4-8.3)
--- NOTE | 2017-04-13 08:56 | Hospitalist Progress Note ---
Assessment and Plan (1) Acute kidney injury Status: Acute Assessment and plan: BUN and creatinine normalized and noted at 22 and 1.10; down from 33 and 1.30. Current Visit: Yes (2) Ileus Status: Acute Assessment and plan: NG tube removed on 04/11. No further episodes of nausea and vomiting reported. Evaluated by surgery on yesterday; no plans for surgical intervention at this time. Diet advanced to full liquids on yesterday; tolerated well. Seen by GI agree with recommendations for colonoscopy and upper endoscopy in 6-8 weeks. We will check hemoglobin A1c to evaluate for underlying diabetes. Current Visit: Yes (3) Nausea & vomiting Status: Acute Assessment and plan: No further episodes of nausea and vomiting reported. Current Visit: Yes Hospitalist: Subjective Interval history: Patient seen and examined; no significant overnight events reported per staff. Diet advanced on yesterday to full liquid. Patient tolerated well. No reports of nausea and vomiting overnight. Will advance diet to regular diet today and monitor. Exam - Constitutional Vitals: Period Temp Pulse Resp BP Sys/Lin Pulse Ox Last 24 Hr 97.3 F-98.0 F 59-79 16-20 97-140/52-66 90-99 General appearance: normal weight - Head Head exam: Present: normal inspection, normocephalic, atraumatic - Eye Eye exam: Present: EOMI, conjunctival injection Pupils: Present: EMIGDIO, normal accommodation - ENT ENT exam: Present: normal exam, normal external ear exam, normal oropharynx - Neck Neck exam: Present: normal inspection. Absent: lymphadenopathy, meningismus, thyromegaly - Respiratory Respiratory exam: Present: clear to auscultation bilaterally. Absent: rales, rhonchi, stridor, wheezes - Cardiovascular Cardiovascular exam: Present: regular rate and rhythm. Absent: carotid bruit, diastolic murmur, gallop, JVD, rubs, systolic murmur - GI/Abdominal GI/Abdominal exam: Present: normal bowel sounds, soft - Extremities Exam Extremities exam: Present: normal inspection, full ROM. Absent: edema - Back Exam Back exam: Present: normal inspection - Neurological Exam Neurological exam: Present: alert, oriented X3, CN II-XII intact - Psychiatric Psychiatric exam: Present: normal affect, normal mood - Skin Skin exam: Present: normal color, warm, dry Results - Labs CBC & BMP: 04/13/17 07:49 04/13/17 07:49 Lab Results: I have reviewed the past 24 hour labs
[2017-04-13] MEDS: TAMSULOSIN 0.4 MG CAPSULE PO SCH (09:14)
[2017-04-13] MEDS: ASPIRIN EC 81 MG TABLET PO SCH (09:14)
[2017-04-13] MEDS: CARVEDILOL 25 MG TABLET PO SCH ×2 (09:14→17:06)
[2017-04-13] MEDS: LISINOPRIL 20 MG TABLET PO SCH ×2 (09:14→20:31)
[2017-04-13] MEDS: amLODIPine 10 MG TABLET PO SCH (09:14)
[2017-04-13] MEDS: PANTOPRAZOLE 40 MG VIAL IV SCH ×2 (09:14→20:32)
[2017-04-13] MEDS: ENOXAPARIN 40 MG/0.4 ML SYRINGE SUBCUT SCH (09:15)
--- NOTE | 2017-04-13 12:55 | General Surgery Progress Note ---
Assessment and Plan (1) Enterocolitis Status: Acute Assessment and plan: Impression: Enterocolitis Plan: Patient appears to be slowly improving. I do not see any indication for surgical intervention. Seems to be more of a gastroenterology problem. I will sign off. Please call if needed. Current Visit: Yes Subjective Patient reports: Present: no new complaints Narrative: Tolerating full liquids. No nausea or vomiting. Still having diarrhea. No abdominal pain. Exam - Constitutional Vitals: Period Temp Pulse Resp BP Sys/Lin Pulse Ox Last 24 Hr 97.3 F-98.0 F 59-79 16-20 97-141/54-66 90-99 General appearance: no acute distress - Head Head exam: Present: normocephalic - Neck Neck exam: Present: normal inspection - Respiratory Respiratory exam: Present: clear to auscultation bilaterally - Cardiovascular Cardiovascular exam: Present: RRR - GI/Abdominal GI/Abdominal exam: Present: soft (Nontender nondistended) - Extremities Exam Extremities exam: Present: normal inspection - Neurological Exam Neurological exam: Present: alert, oriented X3 Speech: Present: normal - Skin Skin exam: Present: normal color Results - Labs CBC & BMP: 04/13/17 07:49 04/13/17 07:49
[2017-04-13] MEDS: SIMVASTATIN 20 MG TABLET PO SCH (20:31)
[2017-04-14 06:33] LABS: Eosinophils % 0.5 % (0.00-10.9); Hemoglobin 10.5 GM/DL (14.0-18.0); Immature Granulocytes % 0.5 %; Immature Granulocytes Absolute 0.02 #; Lymphocytes # 1.2 10*3/uL (1.4-4.0); Lymphocytes % 29.9 % (21.2-54.2); Mean Corpuscular HGB Conc 32.8 GM/DL (32-36); Mean Corpuscular Hemoglobin 28 PG (27-34); Mean Corpuscular Volume 85.3 FL (87-102); Mean Platelet Volume 11.2 FL (9.6-12.0); Monocytes # 0.7 10*3/uL (0.11-0.8); Neutrophils # 2.2 10*3/uL (1.4-7.4); Neutrophils % 53.1 % (38.7-73.9); Platelet Count 185 T/CUMM (130-400); Red Blood Count 3.75 MC/CUMM (3.8-5.5); White Blood Count 4.1 T/CUMM (4-12)
[2017-04-14 07:07] LABS: Band Neutrophils 1 % (0-10); Lymphocytes 41 % (20-55); Segmented Neutrophils 43 % (50-85); Total Cells Counted 100
[2017-04-14 07:08] LABS: Burr Cells Slight; Giant Platelets Few; Hypochromasia 1+; Microcytosis 1+; Platelet Estimate Normal
[2017-04-14 07:13] LABS: Albumin 2.8 G/DL (3.4-5.0); Bilirubin,Total 0.5 MG/DL (0.2-1.0); Calcium 8.3 MG/DL (8.5-10.1); Magnesium 1.9 MG/DL (1.8-2.4); Osmolality,Calculated 287.8 MOS/KG (273-304); Phosphorous 2.2 MG/DL (2.5-4.9); Potassium 3.8 MMOL/L (3.5-5.1); Total Protein 5.8 G/DL (6.4-8.3)
[2017-04-14] MEDS: TAMSULOSIN 0.4 MG CAPSULE PO SCH (09:30)
[2017-04-14] MEDS: CARVEDILOL 25 MG TABLET PO SCH ×2 (09:30→16:22)
[2017-04-14] MEDS: amLODIPine 10 MG TABLET PO SCH (09:30)
[2017-04-14] MEDS: ASPIRIN EC 81 MG TABLET PO SCH (09:30)
[2017-04-14] MEDS: ENOXAPARIN 40 MG/0.4 ML SYRINGE SUBCUT SCH (09:30)
[2017-04-14] MEDS: PANTOPRAZOLE 40 MG VIAL IV SCH ×2 (09:30→22:23)
[2017-04-14] MEDS: LISINOPRIL 20 MG TABLET PO SCH ×2 (09:30→22:23)
[2017-04-14] MEDS: SODIUM CHLORIDE 0.9% 1,000 ML IV SCH ×2 (09:31→22:23)
[2017-04-14] MEDS: POTASSIUM CHLORIDE RIDER 10 MEQ in PREMIX 1 EACH IV PRN ×2 (09:31→10:31)
--- NOTE | 2017-04-14 10:34 | Hospitalist Progress Note ---
Assessment and Plan (1) Acute kidney injury Status: Acute Assessment and plan: BUN and creatinine normalized and noted at 22 and 1.10; down from 33 and 1.30. 04/14-Renal function is normalized; BUN noted at 14 creatinine 1.10. Current Visit: Yes (2) Ileus Status: Acute Assessment and plan: NG tube removed on 04/11. No further episodes of nausea and vomiting reported. Evaluated by surgery on yesterday; no plans for surgical intervention at this time. Diet advanced to full liquids on yesterday; tolerated well. Seen by GI agree with recommendations for colonoscopy and upper endoscopy in 6-8 weeks. We will check hemoglobin A1c to evaluate for underlying diabetes. 04/14-hemoglobin A1c noted at 8.0. The patient does have indeed underlying diabetes. He may be experiencing mild cases of gastroparesis. We will start metformin 500 mg twice daily and reassess in a.m. Current Visit: Yes (3) Nausea & vomiting Status: Acute Assessment and plan: No further episodes of nausea and vomiting reported. Current Visit: Yes Hospitalist: Subjective Interval history: Patient seen and examined; chart reviewed. No significant overnight events reported. Hemoglobin A1c obtained on yesterday reported hemoglobin A1c at 8.0. Exam - Constitutional Vitals: Period Temp Pulse Resp BP Sys/Lin Pulse Ox Last 24 Hr 97.2 F-97.9 F 64-78 16-20 112-141/65-78 93-99 General appearance: normal weight, no acute distress - Head Head exam: Present: normal inspection, normocephalic - Eye Eye exam: Present: EOMI, conjunctival injection Pupils: Present: EMIGDIO, normal accommodation - ENT ENT exam: Present: normal exam, normal external ear exam, normal oropharynx - Neck Neck exam: Present: normal inspection. Absent: lymphadenopathy, meningismus, tenderness, thyromegaly - Respiratory Respiratory exam: Present: clear to auscultation bilaterally. Absent: rales, rhonchi, stridor, wheezes - Cardiovascular Cardiovascular exam: Present: regular rate and rhythm. Absent: carotid bruit, diastolic murmur, gallop, JVD, rubs, systolic murmur - GI/Abdominal GI/Abdominal exam: Present: normal bowel sounds, soft - Extremities Exam Extremities exam: Present: normal inspection, normal capillary refill, full ROM. Absent: edema - Back Exam Back exam: Present: normal inspection - Neurological Exam Neurological exam: Present: alert, oriented X3, CN II-XII intact - Psychiatric Psychiatric exam: Present: normal affect, normal mood - Skin Skin exam: Present: normal color, warm, dry Results - Labs CBC & BMP: 04/14/17 06:25 04/14/17 06:25 Lab Results: I have reviewed the past 24 hour labs
[2017-04-14] MEDS ORDERED: DEXTROSE 50% 25 GM/50 ML VIAL IV PRN (10:35)
[2017-04-14] MEDS ORDERED: GLUCAGON 1 MG VIAL IM PRN (10:35)
[2017-04-14] MEDS: INSULIN REGULAR 100 UNIT/ML SUBCUT SCH ×3 (12:05→22:22)
[2017-04-14] MEDS: metFORMIN 500 MG TABLET PO SCH (16:22)
[2017-04-14] MEDS: SIMVASTATIN 20 MG TABLET PO SCH (22:23)
[2017-04-15 05:58] LABS: Eosinophils % 0.7 % (0.00-10.9); Hematocrit 30.1 VOL% (42.0-52.0); Hemoglobin 9.8 GM/DL (14.0-18.0); Immature Granulocytes % 0.7 %; Immature Granulocytes Absolute 0.03 #; Lymphocytes # 1.3 10*3/uL (1.4-4.0); Lymphocytes % 31.2 % (21.2-54.2); Mean Corpuscular HGB Conc 32.6 GM/DL (32-36); Mean Corpuscular Hemoglobin 28 PG (27-34); Mean Platelet Volume 11.3 FL (9.6-12.0); Monocytes # 0.7 10*3/uL (0.11-0.8); Monocytes % 16.5 % (1.7-12.7); Neutrophils # 2.1 10*3/uL (1.4-7.4); Neutrophils % 50.9 % (38.7-73.9); Platelet Count 180 T/CUMM (130-400); White Blood Count 4.1 T/CUMM (4-12)
[2017-04-15 06:26] LABS: Lymphocytes 29 % (20-55); Metamyelocytes 1 %; Segmented Neutrophils 53 % (50-85); Total Cells Counted 100
[2017-04-15 06:28] LABS: Hypochromasia 1+; Microcytosis 1+; Ovalocytes Slight; Platelet Estimate Adequate
[2017-04-15 06:30] LABS: Albumin 2.7 G/DL (3.4-5.0); Bilirubin,Total 0.7 MG/DL (0.2-1.0); Calcium 8.4 MG/DL (8.5-10.1); Magnesium 1.7 MG/DL (1.8-2.4); Phosphorous 2.4 MG/DL (2.5-4.9); Potassium 3.9 MMOL/L (3.5-5.1); Total Protein 5.9 G/DL (6.4-8.3)
[2017-04-15] MEDS ORDERED: MAGNESIUM SULF RIDER 4 GM in PREMIX 1 EACH IV PRN (07:22)
[2017-04-15] MEDS ORDERED: MAGNESIUM SULF RIDER 2 GM in PREMIX 1 EACH IV PRN (07:22)
[2017-04-15] MEDS: INSULIN REGULAR 100 UNIT/ML SUBCUT SCH ×2 (07:48→12:32)
[2017-04-15] MEDS: ASPIRIN EC 81 MG TABLET PO SCH (08:51)
[2017-04-15] MEDS: CARVEDILOL 25 MG TABLET PO SCH (08:51)
[2017-04-15] MEDS: TAMSULOSIN 0.4 MG CAPSULE PO SCH (08:51)
[2017-04-15] MEDS: LISINOPRIL 20 MG TABLET PO SCH (08:51)
[2017-04-15] MEDS: amLODIPine 10 MG TABLET PO SCH (08:51)
[2017-04-15] MEDS: metFORMIN 500 MG TABLET PO SCH (08:51)
[2017-04-15] MEDS: ENOXAPARIN 40 MG/0.4 ML SYRINGE SUBCUT SCH (08:51)
[2017-04-15] MEDS: PANTOPRAZOLE 40 MG VIAL IV SCH (08:52)
[2017-04-15] MEDS: POTASSIUM PHOS/SOD PHOS POWDER 250 MG PACK PO SCH ×2 (08:57→15:31)
--- NOTE | 2017-04-15 10:16 | Discharge Summary ---
Hospital Course - Hospital Course Hospital Course: This is a very pleasant 76-year-old male that presented to the ED at [facility] on April 09 for the evaluation of shortness of breath, nausea, vomiting, and diarrhea. The patient has a medical history significant for congestive heart failure, hypertension, seizure disorder, cataracts, dyslipidemia, and benign prostatic hypertrophy. Patient has a surgical history significant for cardiac catheterization, cataract removal bilaterally, and transurethral resection of the prostate. The patient reported the onset of symptoms the afternoon prior to presentation. The patient reported that the symptoms were very severe that he was unable to keep any food down. He contacted his family who subsequently brought him to the ED at [facility] for further evaluation. At the time of ED presentation, the patient was assessed. Labs were obtained which reported a hemoglobin at 12.7, hematocrit 36 7.6, BUN at 26, creatinine 1.40, and glucose level at 191. Chest x-ray was performed which reported suspected minimal interstitial edema. Kidney, ureter, and bladder reported localized ileus versus partial or early obstruction. A nasogastric tube was placed in the ED. The patient was subsequently admitted to the hospitalist service for continuation of care. The patient was gently rehydrated and empiric antibiotic coverage was initiated. Stool samples were collected and sent for analysis and a general surgery consultation was requested. The patient was seen and evaluated; however the patient was not deemed appropriate for surgical intervention at that time. A gastroenterology consultation was requested. No immediate gastroenterology intervention was deemed necessary at that time; however it was suspected that the patient could have some underlying diabetes mellitus possibly attributing to his current condition. On April 13, 2017 hemoglobin A1c was obtained which was noted at 8.0; which confirmed suspicion of diabetes mellitus. The patient was then started on oral hyperglycemic agents and the patient's glucose levels improved. A diabetes education consultation was requested to evaluate and assist the patient with diabetes management. The patient's condition is stable. He has not experienced any significant overnight events. 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 Diagnosis - Discharge Diagnosis (1) Acute kidney injury Status: Acute (2) Ileus Status: Acute (3) Nausea & vomiting Status: Acute Discharge Plan - Discharge Medications No Action amLODIPine [Norvasc] 10 mg PO DAILY Carvedilol 25 mg PO BID Aspirin [Ecotrin] 81 mg PO DAILY Tamsulosin [Flomax] 0.4 mg PO DAILY Furosemide 40 mg PO DAILY Lisinopril 40 mg PO BID Simvastatin 20 mg PO DAILY@2100 - Follow Up or Referral - Forms/Instructions Exam - Constitutional Vitals: Period Temp Pulse Resp BP Sys/Lin Pulse Ox Last 24 Hr 97.1 F-98.2 F 64-75 18-22 116-131/68-89 96-99 Discharge Results Labs on day of discharge: Labs from last 24 hours 04/15/17 04/15/17 04/15/17 07:48 05:42 05:42 WBC 4.1 RBC 3.50 L Hgb 9.8 L Hct 30.1 L MCV 86.0 L MCH 28 MCHC 32.6 RDW 14.0 Plt Count 180 MPV 11.3 Neut % (Auto) 50.9 Lymph % (Auto) 31.2 [place] % (Auto) 16.5 H Eos % (Auto) 0.7 Baso % (Auto) 0.0 Neut # (Auto) 2.1 Lymph # (Auto) 1.3 L [place] # (Auto) 0.7 Eos # (Auto) 0.0 Baso # (Auto) 0.0 Total Counted 100 Immature Gran % 0.7 Nucleated RBC % 0.0 Immature Gran # 0.03 Segmented Neutrophils 53 Lymphocytes 29 Monocytes 17 H Metamyelocytes 1 Nucleated RBCs # 0.00 Platelet Estimate Adequate Hypochromasia 1+ Microcytosis 1+ Ovalocytes Slight Sodium 143 Potassium 3.9 Chloride 115 H Carbon Dioxide 19 L Anion Gap 12.9 BUN 11 Creatinine 0.80 GFR Calculation 133 BUN/Creatinine Ratio 13.00 Glucose 108 H POC Glucose 119 H Calculated Osmolality 284.0 Calcium 8.4 L Phosphorus 2.4 L Magnesium 1.7 L Total Bilirubin 0.70 AST 20 ALT 13 L Alkaline Phosphatase 47 Total Protein 5.9 L Albumin 2.7 L Globulin 3.2 Albumin/Globulin Ratio 0.8 L 04/14/17 04/14/17 04/14/17 21:38 15:47 11:02 WBC RBC Hgb Hct MCV MCH MCHC RDW Plt Count MPV Neut % (Auto) Lymph % (Auto) [place] % (Auto) Eos % (Auto) Baso % (Auto) Neut # (Auto) Lymph # (Auto) [place] # (Auto) Eos # (Auto) Baso # (Auto) Total Counted Immature Gran % Nucleated RBC % Immature Gran # Segmented Neutrophils Lymphocytes Monocytes Metamyelocytes Nucleated RBCs # Platelet Estimate Hypochromasia Microcytosis Ovalocytes Sodium Potassium Chloride Carbon Dioxide Anion Gap BUN Creatinine GFR Calculation BUN/Creatinine Ratio Glucose POC Glucose 129 H 105 140 H Calculated Osmolality Calcium Phosphorus Magnesium Total Bilirubin AST ALT Alkaline Phosphatase Total Protein Albumin Globulin Albumin/Globulin Ratio DS: Provider Date of admission: 04/09/17 05:57 Primary care physician: . No PCP Attending physician on admission: Girma Saha MD Consults: 04/09/17 07:46 Consult to Pastoral Services [CONS] Routine Comment: Pastoral Screen: Request Robotics Engineer Visit 04/10/17 10:41 Consult to Physician [CONS] Routine Comment: SBO Consulting Provider: Dante Cross Person Notified: NADYA Date Notified: 04/10/17 Time Notified: 11:02 04/11/17 10:20 Consult to Physician [CONS] Routine Comment: enterocolitis Consulting Provider: Karyna Patterson When should Consulting Provider be notified: Now Person Notified: Dr Patterson Date Notified: 04/11/17 Time Notified: 11:15 04/14/17 09:57 Consult to Diabetes Center, Educator [CONS] Routine Reason for General Manager: Diabetes Education Consult Comment: new diabetic 04/14/17 10:35 Consult to Diabetes Center, Educator [CONS] Routine Reason for General Manager: Diabetes Education Discharging clinician: Beni Lu CNP
--- NOTE | 2017-04-15 11:27 | Discharge Summary ---
<Jensen Aggarwal - Last Filed: 04/15/17 11:21> Hospital Course - Hospital Course Hospital Course: This is a very pleasant 76-year-old male that presented to the ED at [facility] on April 09 for the evaluation of shortness of breath, nausea, vomiting, and diarrhea. The patient has a medical history significant for congestive heart failure, hypertension, seizure disorder, cataracts, dyslipidemia, and benign prostatic hypertrophy. Patient has a surgical history significant for cardiac catheterization, cataract removal bilaterally, and transurethral resection of the prostate. The patient reported the onset of symptoms the afternoon prior to presentation. The patient reported that the symptoms were very severe that he was unable to keep any food down. He contacted his family who subsequently brought him to the ED at [facility] for further evaluation. At the time of ED presentation, the patient was assessed. Labs were obtained which reported a hemoglobin at 12.7, hematocrit 36 7.6, BUN at 26, creatinine 1.40, and glucose level at 191. Chest x-ray was performed which reported suspected minimal interstitial edema. Kidney, ureter, and bladder reported localized ileus versus partial or early obstruction. A nasogastric tube was placed in the ED. The patient was subsequently admitted to the hospitalist service for continuation of care. The patient was gently rehydrated and empiric antibiotic coverage was initiated. Stool samples were collected and sent for analysis and a general surgery consultation was requested. The patient was seen and evaluated; however the patient was not deemed appropriate for surgical intervention at that time. A gastroenterology consultation was requested. No immediate gastroenterology intervention was deemed necessary at that time; however it was suspected that the patient could have some underlying diabetes mellitus possibly attributing to his current condition. On April 13, 2017 hemoglobin A1c was obtained which was noted at 8.0; which confirmed suspicion of diabetes mellitus. The patient was then started on oral hyperglycemic agents and the patient's glucose levels improved. A diabetes education consultation was requested to evaluate and assist the patient with diabetes management. The patient's condition is stable. He has not experienced any significant overnight events. 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 Diagnosis - Discharge Diagnosis (1) Ileus Status: Acute (2) Abdominal pain Status: Acute (3) Nausea & vomiting Status: Acute Discharge Plan - Discharge Data Disposition: Home Health Service Condition at Discharge: Stable Discharge Diet: diabetic diet, heart healthy Activity: resume usual activities as tolerated Hygiene: no restrictions Weight Bearing at Discharge: full weight bearing Contact your physician if you experience:: fever over 101, Difficulty voiding, Redness or swelling, Nausea/Vomiting, Shortness of breath, pain uncontrolled by pain medications - Discharge Medications New metFORMIN [Glucophage] 500 mg PO BID W/MEALS #60 tablet Pantoprazole Tab [Protonix Tab] 40 mg PO DAILY #30 tablet Continue amLODIPine [Norvasc] 10 mg PO DAILY Carvedilol 25 mg PO BID Aspirin [Ecotrin] 81 mg PO DAILY Tamsulosin [Flomax] 0.4 mg PO DAILY Furosemide 40 mg PO DAILY Lisinopril 40 mg PO BID Simvastatin 20 mg PO DAILY@2100 - Follow Up or Referral - Forms/Instructions Instructions: Bowel Obstruction (DC) Exam - Constitutional Vitals: Period Temp Pulse Resp BP Sys/Lin Pulse Ox Last 24 Hr 97.1 F-98.2 F 64-75 18-22 116-131/68-89 95-99 General appearance: over weight - Head Head exam: Present: normocephalic, atraumatic - Eye Eye exam: Present: EOMI Pupils: Present: EMIGDIO - ENT ENT exam: Present: normal exam - Neck Neck exam: Present: normal inspection - Respiratory Respiratory exam: Present: clear to auscultation bilaterally - Cardiovascular Cardiovascular exam: Present: regular rate and rhythm - GI/Abdominal GI/Abdominal exam: Present: normal bowel sounds, soft - Extremities Exam Extremities exam: Present: full ROM - Neurological Exam Neurological exam: Present: alert, oriented X3, CN II-XII intact - Psychiatric Psychiatric exam: Present: normal affect, normal mood - Skin Skin exam: Present: normal color, warm, dry Discharge Results Labs on day of discharge: Labs from last 24 hours 04/15/17 04/15/17 04/15/17 11:04 07:48 05:42 WBC RBC Hgb Hct MCV MCH MCHC RDW Plt Count MPV Neut % (Auto) Lymph % (Auto) [place] % (Auto) Eos % (Auto) Baso % (Auto) Neut # (Auto) Lymph # (Auto) [place] # (Auto) Eos # (Auto) Baso # (Auto) Total Counted Immature Gran % Nucleated RBC % Immature Gran # Segmented Neutrophils Lymphocytes Monocytes Metamyelocytes Nucleated RBCs # Platelet Estimate Hypochromasia Microcytosis Ovalocytes Sodium 143 Potassium 3.9 Chloride 115 H Carbon Dioxide 19 L Anion Gap 12.9 BUN 11 Creatinine 0.80 GFR Calculation 133 BUN/Creatinine Ratio 13.00 Glucose 108 H POC Glucose 169 H 119 H Calculated Osmolality 284.0 Calcium 8.4 L Phosphorus 2.4 L Magnesium 1.7 L Total Bilirubin 0.70 AST 20 ALT 13 L Alkaline Phosphatase 47 Total Protein 5.9 L Albumin 2.7 L Globulin 3.2 Albumin/Globulin Ratio 0.8 L 04/15/17 04/14/17 04/14/17 05:42 21:38 15:47 WBC 4.1 RBC 3.50 L Hgb 9.8 L Hct 30.1 L MCV 86.0 L MCH 28 MCHC 32.6 RDW 14.0 Plt Count 180 MPV 11.3 Neut % (Auto) 50.9 Lymph % (Auto) 31.2 [place] % (Auto) 16.5 H Eos % (Auto) 0.7 Baso % (Auto) 0.0 Neut # (Auto) 2.1 Lymph # (Auto) 1.3 L [place] # (Auto) 0.7 Eos # (Auto) 0.0 Baso # (Auto) 0.0 Total Counted 100 Immature Gran % 0.7 Nucleated RBC % 0.0 Immature Gran # 0.03 Segmented Neutrophils 53 Lymphocytes 29 Monocytes 17 H Metamyelocytes 1 Nucleated RBCs # 0.00 Platelet Estimate Adequate Hypochromasia 1+ Microcytosis 1+ Ovalocytes Slight Sodium Potassium Chloride Carbon Dioxide Anion Gap BUN Creatinine GFR Calculation BUN/Creatinine Ratio Glucose POC Glucose 129 H 105 Calculated Osmolality Calcium Phosphorus Magnesium Total Bilirubin AST ALT Alkaline Phosphatase Total Protein Albumin Globulin Albumin/Globulin Ratio DS: Provider Date of admission: 04/09/17 05:57 Primary care physician: . No PCP Attending physician on admission: Girma Saha MD Consults: 04/09/17 07:46 Consult to Pastoral Services [CONS] Routine Comment: Pastoral Screen: Request Supervisor [employer]s Visit 04/10/17 10:41 Consult to Physician [CONS] Routine Comment: SBO Consulting Provider: Dante Cross Person Notified: NADYA Date Notified: 04/10/17 Time Notified: 11:02 04/11/17 10:20 Consult to Physician [CONS] Routine Comment: enterocolitis Consulting Provider: Karyna Patterson When should Consulting Provider be notified: Now Person Notified: Dr Patterson Date Notified: 04/11/17 Time Notified: 11:15 04/14/17 09:57 Consult to Diabetes Center, Educator [CONS] Routine Reason for Imcu Nurse: Diabetes Education Consult Comment: new diabetic 04/14/17 10:35 Consult to Diabetes Center, Educator [CONS] Routine Reason for Imcu Nurse: Diabetes Education 04/15/17 10:28 Consult to Case Mgmt/Social Srvs [CONS] Routine Reason for Case Mgmt/Social Srvs: Home Health Consult Comment: discharge today Discharging clinician: Jensen Aggarwal MD <Marimar Luda - Last Filed: 04/15/17 14:59> Diagnosis - Discharge Diagnosis (1) Acute kidney injury Status: Acute (2) Ileus Status: Acute (3) Nausea & vomiting Status: Acute
[2017-04-15 12:13] VITALS: BP 123/79
[2017-04-15] MEDS: SODIUM CHLORIDE 0.9% 1,000 ML IV SCH (15:03)
== END 2017-04-15 16:15 | disposition home health service (06) | DRG 389 ==
LOC: N.ED 04:23 → SUATTDRO 05:57 → N.EDINP 05:57 → N.2E 06:33
PROVIDERS: ADMIT Internal Medicine; ATTEND Internal Medicine Infectious Disease